=== PATIENT | male | born 1985 | race Two or more races ===

== ENCOUNTER 2020-01-17 20:10 | Emergency (ER) | payer OTHER ==
[~2020-01-17] VITALS: Ht 182.9 cm; Wt 108.9 kg
[2020-01-17 20:50] VITALS: BP 118/85
[2020-01-17] MEDS ORDERED: IBUPROFEN 800 MG TAB PO ONE (21:30)
== END 2020-01-17 21:53 | disposition home or self-care (01) ==
LOC: ER 20:10
DX: S92.311A Displaced fracture of first metatarsal bone, right foot, initial encounter for closed fracture (principal); W11.XXXA Fall on and from ladder, initial encounter; Y93.89 Activity, other specified; Y92.89 Other specified places as the place of occurrence of the external cause; Y99.8 Other external cause status
CPT/HCPCS: 29125; 73130

== ENCOUNTER 2024-03-06 08:10 | Emergency (ER) | payer OTHER ==
[~2024-03-06] VITALS: Ht 182.9 cm; Wt 114.0 kg
[2024-03-06 08:40] VITALS: BP 144/92; PULSE 86; RESP 16; TEMP 97.7; O2SAT 96
[2024-03-06 08:59] LABS: Basophils # (auto) 0 10 ^3/uL (0-0.2); Basophils % (auto) 0.4 % (0.0-2.0); Eosinophils # (auto) 0.1 10 ^3/uL (0-0.8); Eosinophils % (auto) 0.9 % (0.0-7.0); Hematocrit 49.7 % (41.0-53.0); Hemoglobin 17.7 g/dL (13.5-17.5); Lymphocytes # (auto) 2.6 10 ^3/uL (0.4-5.4); Lymphocytes % (auto) 30.5 % (10.0-50.0); Mean Corpuscular Hemoglobin 29.6 pg (28.0-32.0); Mean Corpuscular Hgb Conc. 35.6 g/dL (32.0-36.0); Mean Corpuscular Volume 83.1 fL (80.0-100.0); Monocytes # (auto) 0.5 10 ^3/uL (0-1.3); Monocytes % (auto) 5.7 % (0.0-12.0); Neutrophils # (auto) 5.3 10 ^3/uL (1.6-8.6); Neutrophils % (auto) 62.5 % (37.0-80.0); Nucleated Red Blood Cells % 0.1 %; Platelet Count (auto) 212 10^3/uL (140-450); Red Blood Cells 5.98 10^6/uL (4.5-5.90); Red Cell Distribution Width 12.1 % (11.8-14.3); White Blood Cell 8.5 10^3/uL (4.4-10.8)
[2024-03-06 09:19] LABS: Alanine Aminotransferase 44 U/L (7-40); Alkaline Phosphatase 75 U/L (46-116); Anion Gap 6 (5-15); Aspartate Aminotransferase 29 U/L (13-40); BUN/Creatinine Ratio 8.4 (10.0-20.0); Blood Urea Nitrogen 10 mg/dL (9-23); Calcium 10.3 mg/dL (8.7-10.4); Carbon Dioxide 30 mmol/L (20-31); Chloride 106 mmol/L (98-107); Glucose 106 mg/dL (74-106); Sodium 142 mmol/L (136-145); Total Protein 7.5 g/dL (5.7-8.2)
[2024-03-06 09:45] LABS: Urine Bacteria None Seen /hpf (None Seen)
[2024-03-06 10:31] LABS: Lipase 41 U/L (12-53)
[2024-03-06 10:40] LABS: Urine Blood Negative /uL (Negative); Urine Clarity Clear (Clear); Urine Color Light-Yellow (Yellow); Urine Protein, UAD Negative (Negative); Urine Specific Gravity 1.019 (1.001-1.035); Urine Urobilinogen Normal (Negative); Urine WBC <1 /hpf (0 - 3); Urine pH 7.5 (5.0-9.0)
[2024-03-06] MEDS: KETOROLAC TROMETH 60MG/2ML VIAL IM ONE (10:44)
[2024-03-06] MEDS ORDERED: OMEP-434 PO (10:54)
[2024-03-06] MEDS ORDERED: CEPH500C PO (10:54)
== END 2024-03-06 11:12 | disposition home or self-care (01) ==
LOC: ER 08:10
DX: K82.4 Cholesterolosis of gallbladder (principal); I88.0 Nonspecific mesenteric lymphadenitis; K44.9 Diaphragmatic hernia without obstruction or gangrene; Z90.49 Acquired absence of other specified parts of digestive tract
CPT/HCPCS: 36415; 74176; 76705; 80053; 81001; 83690; 85025; 96372; 99285; J1885